=== PATIENT | male | born 2000 | race Hispanic/Latino ===

== ENCOUNTER 2018-12-06 19:09 | Emergency (ER) | payer SELFPAY ==
[2018-12-06 19:23] VITALS: BP 130/85; PULSE 73; RESP 16; TEMP 36.7; O2SAT 97; BMI 19.6
--- NOTE | 2018-12-06 20:11 | ED_ITS ---
HPI - Male Genitourinary <AISHA Newton - Last Filed: 12/06/18 22:13> General Chief complaint: Urogenital-Male Stated complaint: Testing for std Time Seen by Provider: 12/06/18 19:38 Source: patient Mode of arrival: ambulatory Limitations: no limitations History of Present Illness HPI Narrative: This is 18-year-old male, smoker, presents to ED requesting STI screening. Patient denies any symptoms such as penile discharge or testicular pain or swelling. He denies any ulcers or lesions. Patient denies any urinary symptoms such as dysuria, burning, urinary frequency. Reports, recently had multiple sexual encounters while using barrier methods such as condoms. 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 Related Data Allergies Allergy/AdvReac Type Severity Reaction Status Date / Time No Known Drug Allergies Allergy Verified 12/06/18 19:23 Review of Systems <AISHA Newton - Last Filed: 12/06/18 22:13> Review of Systems General: Denies fever, chills, fatigue, malaise, sweats. HEENT: Denies sinus pain, ear pain, sore throat, difficulty swallowing, dizziness. Respiratory: Denies dyspnea, cough, wheezing, hemoptysis, sputum. Cardiovascular: Denies chest pain, palpitations, orthopnea, edema. Gastrointestinal: Denies nausea, vomiting, abdominal pain, diarrhea, constipation, melena. : Denies dysuria, frequency, incontinence, hematuria, urinary retention. Musculoskeletal: Denies weakness, joint pain or bony pain. Skin: Denies rash, skin lesions, or other. Neurologic: Denies weakness, headache, numbness, change in speech, confusion, seizures, incoordination. Psychiatric: No concerning psychosocial issues. 12-point review of systems is negative except for those stated above. PFSH <AISHA Newton - Last Filed: 12/06/18 22:13> Medical History No significant past surgical history (Acute) Patient denies medical problems (Acute) Social History Smoking Status: Current some day smoker Social History Smoking Status: Current some day smoker Exam <Fran JacobsonBELLAP - Last Filed: 12/06/18 22:13> Narrative Exam Narrative: General appearance: well developed, well nourished, in no acute distress. Head: normocephalic, atraumatic, no scalp lesions, non-tender. Eye: pupil equal, round. EOMI. Nose: nares patent. Oral: mucosa moist. Neck/Thyroid: neck supple, full range of motion, no visible masses. Skin: no suspicious rashes, lesions over visible areas. Warm and dry. Heart: no clubbing, no cyanosis, no edema. Lungs: Breathing even and unlabored. No stridor. No accessory muscles used. Chest: normal shape and expansion. Abdomen: non-obese, non-distended. Neurologic: alert and oriented. Cognitive exam, ELECTRICIAN WIRING and PNS grossly intact on informal exam. Psych: good eye contact, normal affect. Initial Vital Signs Initial Vital Signs: Vital Signs Temperature 98.1 F 12/06/18 19:23 Pulse Rate 73 12/06/18 19:23 Respiratory Rate 16 12/06/18 19:23 Blood Pressure 130/85 12/06/18 19:23 Pulse Oximetry 97 12/06/18 19:23 <Tali Acosta DO - Last Filed: 12/07/18 02:34> Initial Vital Signs Initial Vital Signs: Vital Signs Temperature 98.1 F 12/06/18 19:23 Pulse Rate 73 12/06/18 19:23 Respiratory Rate 16 12/06/18 19:23 Blood Pressure 130/85 12/06/18 19:23 Pulse Oximetry 97 12/06/18 19:23 Course <Fran Jacobson [facility] - Last Filed: 12/06/18 22:13> Orders Ordered: ED Orders 12/06/18 20:10 Urine Chlamydia Gonorrhea PCR Stat Vital Signs - 8 hr 12/06/18 19:23 Temperature 98.1 F Pulse Rate 73 Respiratory Rate 16 Blood Pressure 130/85 Pulse Oximetry 97 <Tali Acosta DO - Last Filed: 12/07/18 02:34> Orders Ordered: ED Orders 12/06/18 20:10 Urine Chlamydia Gonorrhea PCR Stat Vital Signs - 8 hr 12/06/18 19:23 Temperature 98.1 F Pulse Rate 73 Respiratory Rate 16 Blood Pressure 130/85 Pulse Oximetry 97 MDM - Male Genitourinary <Fran JacobsonAISHA - Last Filed: 12/06/18 22:13> Differential Diagnosis Likely other (chlamydia, gonorrhea) Medical Records Attestation: I reviewed the patient's medical records. Lab Data Attestation: I reviewed the patient's lab results. 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 Patient denied any signs and symptoms for STIs but he is just curious and would like to know. Patient denies any penile lesions, unusual rashes, urinary discomfort, testicular/scrotal pain. Urine test for GC/chlamydia was negative. We discussed in length for how to prevent STIs and incluing using barrier method. Patient verbalized the understanding and expressed no further questions at this time. <Tali Acosta DO - Last Filed: 12/07/18 02:34> Lab Data Lab Results 12/06/18 Range/Units 20:10 Ur Chlamydia DNA (PCR) Not detected N gonorrhoeae DNA (PCR) Not detected Discharge Plan Departure Patient Disposition: Home Clinical Impression: Encounter for screening examination for sexually transmitted disease Discharge Date/Time: 12/06/18 22:23 Interventions: ED Discharge Assessment Last Done: 12/06/18 22:23 Instructions: Facts About Sexually Transmitted Infections, Chlamydia: The Silent STD Activity Restrictions/Additional Instructions: You have been diagnosed with [encounter for screening test for STIs and the urine test for Chlamydia and gonorrhea was negative tonight.]. What to do: *Take your medications as directed. There is no new medications to go home but please practice safe sex. The barrier med there is a the superior method except abstinence. *Follow up with your primary care provider in 2-3 days as needed. Let them know you were seen in the ED and that we asked you to be seen in follow up. *Return to ED if you have any new, worsening, or concerning symptoms, such as [penile discharge or lesions, pain in your scrotum/testicles, urinary discomfort or any acute concerns]. Referrals: [facility] [Outside] <Tali Acosta DO - Last Filed: 12/07/18 02:34> Cosign ED Attending Cosignature Attestation: I was immediately available in the department for consultation. Documentation has been reviewed. I agree with assessment and plan.
[2018-12-06 21:57] LABS: Urine N gonorrhoeae NOT DETECTED
[2018-12-06 21:58] LABS: Urine Chlamydia NOT DETECTED
== END 2018-12-06 22:23 | disposition home or self-care (01) ==
PROVIDERS: Emergency Provider Nurse Practitioner Family
DX: Z11.3 Encounter for screening for infections with a predominantly sexual mode of transmission (principal)
CPT/HCPCS: 87491; 87591; 99282